=== PATIENT | female | born 1985 | race Caucasian/White ===

== ENCOUNTER 2016-11-25 12:18 | Emergency (ER) | payer SELFPAY ==
[2016-11-25] MEDS ORDERED: SODIUM CHLORIDE 0.9% 500 ML IV STA (12:47)
--- NOTE | 2016-11-25 12:51 | ED ---
General Adult HPI - General Chief complaint: Chest Pain Stated complaint: Chest Pain Time Seen by Provider: 11/25/16 12:25 Source: patient, RN notes reviewed Mode of arrival: wheelchair Limitations: no limitations - History of Present Illness Initial comments: This is a 31-year-old female presents emergency Department complaining of her heart fluttering over the last 3 days. Patient states it lasts for about 10 seconds and goes away. Patient states today she continued to have episodes of fluttering but she also has chest tightness. Patient states she does have a history of anxiety but with the fluttering she didn't think it was her anxiety. Patient denies any difficulty breathing first breath per patient denies any fluttering currently. Patient denies any recent fever chills or cough. Patient denies any chest pain. Patient denies any abdominal pain patient denies nausea vomiting diarrhea. Patient denies any lightheadedness dizziness or near syncopal episode. - Related Data Home Medications Medication Instructions Recorded Confirmed No Known Home Medications [No 11/25/16 11/25/16 Known Home Medications] Allergies Allergy/AdvReac Type Severity Reaction Status Date / Time No Known Allergies Allergy Verified 11/25/16 12:31 Review of Systems ROS Statement: Those systems with pertinent positive or pertinent negative responses have been documented in the HPI. ROS Other: All systems not noted in ROS Statement are negative. Past Medical History Past Medical History: No Reported History History of Any Multi-Drug Resistant Organisms: None Reported Past Surgical History: No Surgical Hx Reported Past Psychological History: Anxiety Smoking Status: Current every day smoker Past Alcohol Use History: Occasional Past Drug Use History: None Reported General Exam - General Exam Comments Initial Comments: GENERAL: Patient is well-developed and well-nourished. Patient is nontoxic and well- hydrated and is in no acute distress. ENT: Neck is soft and supple. No significant lymphadenopathy is noted. Oropharynx is clear. Moist mucous membranes. Neck has full range of motion without eliciting any pain. EYES: The sclera were anicteric and conjunctiva were pink and moist. Extraocular movements were intact and pupils were equal round and reactive to light. Eyelids were unremarkable. PULMONARY: Unlabored respirations. Good breath sounds bilaterally. No audible rales rhonchi or wheezing was noted. CARDIOVASCULAR: There is a regular rate and rhythm without any murmurs gallops or rubs. ABDOMEN: Soft and nontender with normal bowel sounds. No palpable organomegaly was noted. There is no palpable pulsatile mass. SKIN: Skin is clear with no lesions or rashes and otherwise unremarkable. NEUROLOGIC: Patient is alert and oriented x3. Cranial nerves II through XII are grossly intact. Motor and sensory are also intact. Normal speech, volume and content. Symmetrical smile. MUSCULOSKELETAL: Normal extremities with adequate strength and full range of motion. No lower extremity swelling or edema. No calf tenderness. LYMPHATICS: No significant lymphadenopathy is noted PSYCHIATRIC: Normal psychiatric evaluation. Normal interpersonal interactions appears functionally intact in deals appropriately with others. No signs of depression. Patient is mildly anxious Limitations: no limitations Course Vital Signs 11/25/16 11/25/16 11/25/16 12:25 12:42 14:07 Temperature 97.9 F Pulse Rate 109 H 132 H 80 Respiratory 18 20 18 Rate Blood Pressure 126/81 152/76 124/71 O2 Sat by Pulse 100 100 98 Oximetry Medical Decision Making - Medical Decision Making EKG shows sinus tachycardia at 131 bpm OH interval is 136 QRS is 76 QT interval 298 QTC is 440. Patient's EKG shows no ST segment elevation or depression or T wave abnormalities are noted Patient's chest x-ray is normal. I went back into reevaluate the patient she stated she had no more palpitations here. Patient states she thinks she may have had a few palpitations and then got anxious and therefore the chest tightness. Patient states she feels much better now. Patient will follow-up with her primary medical care doctor to get a heart monitor. - Lab Data Result diagrams: 11/25/16 12:39 11/25/16 12:39 Lab Results 11/25/16 11/25/16 11/25/16 Range/Units 12:39 12:39 12:39 WBC 10.4 (3.8-10.6) k/uL RBC 4.89 (3.80-5.40) m/uL Hgb 15.5 (11.4-16.0) gm/dL Hct 46.6 H (34.0-46.0) % MCV 95.4 (80.0-100.0) fL MCH 31.7 (25.0-35.0) pg MCHC 33.2 (31.0-37.0) g/dL RDW 12.7 (11.5-15.5) % Plt Count 226 (150-450) k/uL Neutrophils % 65 % Lymphocytes % 27 % Monocytes % 4 % Eosinophils % 1 % Basophils % 1 % Neutrophils # 6.7 (1.3-7.7) k/uL Lymphocytes # 2.8 (1.0-4.8) k/uL Monocytes # 0.4 (0-1.0) k/uL Eosinophils # 0.1 (0-0.7) k/uL Basophils # 0.1 (0-0.2) k/uL PT (9.0-12.0) sec INR (<1.1) APTT (22.0-30.0) sec Sodium 142 (137-145) mmol/L Potassium 4.0 (3.5-5.1) mmol/L Chloride 105 (98-107) mmol/L Carbon Dioxide 22 (22-30) mmol/L Anion Gap 15 mmol/L BUN 11 (7-17) mg/dL Creatinine 0.66 (0.52-1.04) mg/dL Est GFR (MDRD) Af Amer >60 (>60 ml/min/1.73 sqM) Est GFR (MDRD) Non-Af >60 (>60 ml/min/1.73 sqM) Glucose 120 H (74-99) mg/dL Calcium 9.6 (8.4-10.2) mg/dL Magnesium 1.8 (1.6-2.3) mg/dL Total Bilirubin 0.7 (0.2-1.3) mg/dL AST 19 (14-36) U/L ALT 22 (9-52) U/L Alkaline Phosphatase 64 (38-126) U/L Total Creatine Kinase 295 H (30-135) U/L CK-MB (CK-2) <0.2 (0.0-2.4) ng/mL CK-MB (CK-2) Rel Index Troponin I <0.012 (0.000-0.034) ng/mL Total Protein 7.8 (6.3-8.2) g/dL Albumin 4.8 (3.5-5.0) g/dL TSH 1.890 (0.465-4.680) mIU/L Free T4 0.73 L (0.78-2.19) ng/dL 11/25/16 Range/Units 12:39 WBC (3.8-10.6) k/uL RBC (3.80-5.40) m/uL Hgb (11.4-16.0) gm/dL Hct (34.0-46.0) % MCV (80.0-100.0) fL MCH (25.0-35.0) pg MCHC (31.0-37.0) g/dL RDW (11.5-15.5) % Plt Count (150-450) k/uL Neutrophils % % Lymphocytes % % Monocytes % % Eosinophils % % Basophils % % Neutrophils # (1.3-7.7) k/uL Lymphocytes # (1.0-4.8) k/uL Monocytes # (0-1.0) k/uL Eosinophils # (0-0.7) k/uL Basophils # (0-0.2) k/uL PT 11.1 (9.0-12.0) sec INR 1.1 (<1.1) APTT 25.3 (22.0-30.0) sec Sodium (137-145) mmol/L Potassium (3.5-5.1) mmol/L Chloride (98-107) mmol/L Carbon Dioxide (22-30) mmol/L Anion Gap mmol/L BUN (7-17) mg/dL Creatinine (0.52-1.04) mg/dL Est GFR (MDRD) Af Amer (>60 ml/min/1.73 sqM) Est GFR (MDRD) Non-Af (>60 ml/min/1.73 sqM) Glucose (74-99) mg/dL Calcium (8.4-10.2) mg/dL Magnesium (1.6-2.3) mg/dL Total Bilirubin (0.2-1.3) mg/dL AST (14-36) U/L ALT (9-52) U/L Alkaline Phosphatase (38-126) U/L Total Creatine Kinase (30-135) U/L CK-MB (CK-2) (0.0-2.4) ng/mL CK-MB (CK-2) Rel Index Troponin I (0.000-0.034) ng/mL Total Protein (6.3-8.2) g/dL Albumin (3.5-5.0) g/dL TSH (0.465-4.680) mIU/L Free T4 (0.78-2.19) ng/dL Disposition Clinical Impression: Palpitations Disposition: HOME SELF-CARE Condition: Good Instructions: Palpitations (ED) Referrals: Presley Eduardo DO [Primary Care Provider] - 1-2 days Time of Disposition: 14:21
[2016-11-25 13:11] LABS: Basophils # (A) 0.1 k/uL (0-0.2); Basophils % (A) 1 %; CHCM 33.7; Eosinophils # (A) 0.1 k/uL (0-0.7); Eosinophils % (A) 1 %; HCT 46.6 % (34.0-46.0); HDW 2.14; HGB 15.5 gm/dL (11.4-16.0); Luc # (Auto) 0.19; Luc % (Auto) 2; Lymphocytes # (A) 2.8 k/uL (1.0-4.8); Lymphocytes % (A) 27 %; MCH 31.7 pg (25.0-35.0); MCHC 33.2 g/dL (31.0-37.0); MCV 95.4 fL (80.0-100.0); Mean Platelet Volume 6.6; Monocytes # (A) 0.4 k/uL (0-1.0); Monocytes % (A) 4 %; Neutrophils # (A) 6.7 k/uL (1.3-7.7); Neutrophils % (A) 65 %; RBC 4.89 m/uL (3.80-5.40); RDW 12.7 % (11.5-15.5); WBC 10.4 k/uL (3.8-10.6); WBC (Perox) 9.78
--- NOTE | 2016-11-25 13:12 | XR ---
EXAMINATION TYPE: XR chest 2V DATE OF EXAM: 11/25/2016 COMPARISON: NONE HISTORY: Chest pain and dysrhythmia. TECHNIQUE: Frontal and lateral views of the chest are obtained. FINDINGS: There is no focal air space opacity, pleural effusion, or pneumothorax seen. The cardiac silhouette size is within normal limits. The osseous structures are intact. IMPRESSION: No acute cardiopulmonary process.
[2016-11-25 13:19] LABS: INR 1.1 (<1.1); Partial Thromboplastin Time 25.3 sec (22.0-30.0); Prothrombin Time 11.1 sec (9.0-12.0)
[2016-11-25 13:20] LABS: ALT 22 U/L (9-52); AST 19 U/L (14-36); Alkaline Phosphatase 64 U/L (38-126); Anion Gap 15 mmol/L; Blood Urea Nitrogen 11 mg/dL (7-17); Calcium 9.6 mg/dL (8.4-10.2); Carbon Dioxide 22 mmol/L (22-30); Chloride 105 mmol/L (98-107); Glucose 120 mg/dL (74-99); Magnesium 1.8 mg/dL (1.6-2.3); Non-African American GFR(MDRD) >60 (>60 ml/min/1.73 sqM); Sodium 142 mmol/L (137-145); Total Bilirubin 0.7 mg/dL (0.2-1.3); Total Protein 7.8 g/dL (6.3-8.2)
[2016-11-25 13:36] LABS: Creatine Kinase 295 U/L (30-135)
[2016-11-25 13:48] LABS: Creatine Kinase MB <0.2 ng/mL (0.0-2.4); Troponin I <0.012 ng/mL (0.000-0.034)
[2016-11-25 14:36] VITALS: BP 107/65; PULSE 81; RESP 16; TEMP 98.9
== END 2016-11-25 14:33 | disposition home or self-care (01) ==
LOC: EC 12:18
DX: R00.2 Palpitations (principal); R07.9 Chest pain, unspecified; F17.200 Nicotine dependence, unspecified, uncomplicated
CPT/HCPCS: 36415; 71020; 80053; 82550; 82553; 83735; 84439; 84443; 84484; 85025; 85610; 85730; 93005; 99285

== ENCOUNTER → 2017-03-25 | Outpatient (CLI) | payer OTHER ==
[2017-03-25 19:26] LABS: Basophils # (A) 0.1 k/uL (0-0.2); Basophils % (A) 1 %; CH 31.8; Eosinophils # (A) 0.1 k/uL (0-0.7); Eosinophils % (A) 1 %; HCT 44.4 % (34.0-46.0); HGB 14.4 gm/dL (11.4-16.0); Luc % (Auto) 2; Lymphocytes % (A) 25 %; MCH 31.5 pg (25.0-35.0); MCHC 32.5 g/dL (31.0-37.0); Monocytes # (A) 0.6 k/uL (0-1.0); Monocytes % (A) 5 %; Neutrophils # (A) 8.1 k/uL (1.3-7.7); Neutrophils % (A) 67 %; RBC 4.57 m/uL (3.80-5.40); RDW 13.4 % (11.5-15.5); WBC (Perox) 11.24
[2017-03-25 19:42] LABS: ALT 31 U/L (9-52); AST 21 U/L (14-36); Alkaline Phosphatase 76 U/L (38-126); Anion Gap 13 mmol/L; Blood Urea Nitrogen 18 mg/dL (7-17); Calcium 9.7 mg/dL (8.4-10.2); Carbon Dioxide 21 mmol/L (22-30); Chloride 107 mmol/L (98-107); Creatine Kinase 75 U/L (30-135); Glucose 94 mg/dL (74-99); Non-African American GFR(MDRD) >60 (>60 ml/min/1.73 sqM); Potassium 4.1 mmol/L (3.5-5.1); Sodium 141 mmol/L (137-145); Total Bilirubin 0.3 mg/dL (0.2-1.3); Total Protein 7.6 g/dL (6.3-8.2)
[2017-03-25 19:58] LABS: Creatine Kinase MB <0.2 ng/mL (0.0-2.4); Troponin I <0.012 ng/mL (0.000-0.034)
== END | disposition home or self-care (01) ==
LOC: LABMAIN 18:43
PROVIDERS: ATTEND Family Medicine
DX: R07.9 Chest pain, unspecified (principal)
CPT/HCPCS: 36415; 80053; 82550; 82553; 84484; 85025

== ENCOUNTER → 2021-09-16 | Outpatient (CLI) | payer OTHER ==
--- NOTE | 2021-09-17 14:59 | MM ---
Reason for exam: screening (asymptomatic). Baseline mammogram. History: Patient is nulliparous. Family history of breast cancer in maternal grandmother. Taking hormonal contraceptives for 7 years beginning at age 29. Physical Findings: A clinical breast exam by your physician is recommended on an annual basis and results should be correlated with mammographic findings. MG Screening Mammo w CAD Bilateral CC and MLO view(s) were taken. The breast tissue is heterogeneously dense. This may lower the sensitivity of mammography. There is no discrete abnormality. No significant changes when compared with prior studies. ASSESSMENT: Negative, BI-RAD 1 RECOMMENDATION: Routine screening mammogram of both breasts in 1 year.
== END | disposition home or self-care (01) ==
LOC: MERGE 08:00 → RADMAMWWP 08:05
PROVIDERS: ATTEND Obstetrics & Gynecology
DX: Z12.31 Encounter for screening mammogram for malignant neoplasm of breast (principal)
CPT/HCPCS: 77067

== ENCOUNTER → 2021-10-13 | Outpatient (CLI) | payer OTHER ==
[2021-10-13 22:34] LABS: Basophils # (A) 0.07 X 10*3/uL (0.00-0.10); Basophils % (A) 0.6 %; Eosinophils # (A) 0.22 X 10*3/uL (0.04-0.35); HCT 42.3 % (37.2-46.3); HGB 13.7 g/dL (12.0-15.0); Immature Grans, Automated 0.5 %; Lymphocytes # (A) 3.51 X 10*3/uL (0.90-5.00); Lymphocytes % (A) 32.4 %; MCH 30.6 pg (27.0-32.0); MCHC 32.4 g/dL (32.0-37.0); MCV 94.6 fL (80.0-97.0); Mean Platelet Volume 9.8 fL (9.5-12.2); Monocytes # (A) 0.74 X 10*3/uL (0.20-1.00); Monocytes % (A) 6.8 %; NRBC Per 100 WBC 0 /100 WBCS (0.0-0.0); Neutrophils # (A) 6.25 X 10*3/uL (1.80-7.70); Neutrophils % (A) 57.7 %; Platelet Count 311 X 10*3/uL (140-440); RBC 4.47 X 10*6/uL (4.10-5.20); RDW 13.2 % (11.5-14.5); WBC 10.84 X 10*3/uL (4.50-10.00)
== END | disposition home or self-care (01) ==
LOC: LABPAT 16:08
PROVIDERS: ATTEND Obstetrics & Gynecology
DX: Z01.812 Encounter for preprocedural laboratory examination (principal); N87.1 Moderate cervical dysplasia
CPT/HCPCS: 36415; 85025

== ENCOUNTER → 2021-10-27 | Day surgery (SDC) | payer OTHER ==
[~2021-10-27] MED LIST: Acetaminophen-Codeine 300-30mg TAB PO PRN; DEXAMETHASONE SOD PHOSPHATE 4 MG/ML 1 ML VIAL IV ONE; FERRIC SUBSULFATE (MONSELS) JAR TOPICAL ONE; HYDROmorphone (PF) 1 MG/ML ONE; HYDROmorphone 0.5 MG/0.5 ML SYRINGE IVP PRN; IBUPROFEN 600 MG TAB PO PRN; IODINE/POTASS IOD (LUGOLS) BOTTLE TOPICAL ONE; KETOROLAC 15 MG/ML 1 ML VIAL IVP PRN; KETOROLAC 15 MG/ML 1 ML VIAL ONE; LACTATED RINGERS 1,000 ML IV SCH; LIDOCAINE 1% (10MG/ML) FOR IV START INTRADERMA PRN; LIDOCAINE 2% INJ 20 MG/ML (2 ML VIAL) ONE; METOCLOPRAMIDE 5 MG/ML 2 ML VIAL IVP PRN; MIDAZOLAM 2 MG/2 ML VIAL ONE; ONDANSETRON 4 MG/2 ML VIAL IVP ONE; ONDANSETRON 4 MG/2 ML VIAL IVP PRN; PROPOFOL 10 MG/ML 20 ML VIAL IV ONE; Pre Op ABX Message 1 EACH MISC MISCELLANE ONE; SCOPOLAMINE 1 MG/72 HR PATCH TRANSDERM ONE; SIMETHICONE 80 MG CHEWABLE PO PRN; diphenhydrAMINE 50 MG/ML 1 ML VIAL IVP PRN; fentaNYL (PF) 50 MCG/ML 2 ML AMP ONE
[2021-10-27 11:54] VITALS: RESP 16; TEMP 96.9
--- NOTE | 2021-10-27 13:34 | P.OP ---
Date of Procedure: 10/27/21 Preoperative Diagnosis: #1. Endocervical ALE-3/severe dysplasia Postoperative Diagnosis: Same Procedure(s) Performed: #1. Cold knife cervical cone Anesthesia: other (Gen. by LMA) Surgeon: Raj Meza Estimated Blood Loss (ml): 30 IV fluids (ml): 200 Urine output (ml): 10 Pathology: other (Cervical cone) Condition: stable Disposition: PACU Operative Findings: Intraoperatively, the cervix was stained with Lugol strong iodine which demonstrated an area from approximately 6 to 7:30 at the endocervical transformation zone which did not take up stain. There was an IUD in place. A cone was taken to a depth of approximately 2 cm circumferentially to include all the nonstaining area and was ultimately removed and the IUD strings left intact. Post-procedurally, there was minimal ongoing bleeding. The size of the cone was perhaps 1.5 cm x 1.5 cm x 2 cm in depth though it did appear to have been opened during removal incidentally. Description of Procedure: The patient was prepped and draped in usual fashion after general anesthesia was administered by the anesthesiologist. A weighted speculum was placed and the bladder drained of approximately 10 mL of clear jennie urine. The anterior lip of the cervix was grasped with a single-tooth tenaculum allowing placement of a cervical stay suture from 10:00 to 8:00 into the body of the cervix at the cervicovaginal junction using 0 Vicryl where was firmly tied down. A similar stitch was placed at the cervicovaginal junction into the body of the cervix from 2 to 4:00 and firmly tied down. The tenaculum was then removed and the cervix painted with Lugol strong iodine. The findings are as noted above. IUD strings were clearly seen within the cervical os and were moved out of the way as a circumferential incision with an 11 blade scalpel was made to approximate 2 cm of depth around a uterine sound placed through the canal and into the uterine cavity. Once the depth of the cone had been attained, the sound was removed and the cone grasped anterior posteriorly with an Allis clamp and it was carefully excised at its deepest point. Fortunately, the cone was removed and the IUD strings remain intact within the cervical os. The cone bed was then cauterized from the base using ball cautery to the ectocervical component where the margin of the ectocervix was thoroughly cauterized as well. There was a small amount of bleeding still ongoing and Monsel solution was utilized with a large swab to be placed into the bed of the cone was left in place for 30-45 seconds. After removal, there was minimal ongoing bleeding. Cautery was carried out at one small site that was seen to be bleeding. A second swab of Monsel solution was used. After removal of the swab bleeding was significantly less than a normal period. The stay sutures were left in place but trimmed short and all instrumentation was removed. Estimated blood loss for the case was approximately 30 mL. There were no complications. All sponge, instrument, and needle counts were correct. The patient tolerated the procedure well and proceeded to the recovery room in stable condition.
[2021-10-27 14:43] VITALS: BP 117/79; PULSE 77
== END | disposition home or self-care (01) ==
LOC: OR 10:27
PROVIDERS: ATTEND Obstetrics & Gynecology
DX: D06.9 Carcinoma in situ of cervix, unspecified (principal); F17.210 Nicotine dependence, cigarettes, uncomplicated; Z97.5 Presence of (intrauterine) contraceptive device; Z87.19 Personal history of other diseases of the digestive system; Z82.49 Family history of ischemic heart disease and other diseases of the circulatory system
CPT/HCPCS: 81025; 88307; 57520; J2250; J1100; J2405; J3010; J1170; J1885; J2704; J2001

== ENCOUNTER 2021-12-05 13:16 | Emergency (ER) | payer OTHER ==
[2021-12-05 14:22] VITALS: TEMP 98.6
[2021-12-05] MEDS ORDERED: NITROGLYCERIN OINT 1 INCH/GM PACKET TOPICAL STA (18:14)
[2021-12-05] MEDS ORDERED: ASPIRIN 81 MG PO STA (18:14)
--- NOTE | 2021-12-05 18:16 | ED ---
General Adult HPI - General Chief complaint: Chest Pain Stated complaint: chest pain x 1wk Time Seen by Provider: 12/05/21 17:54 Source: patient, RN notes reviewed Mode of arrival: ambulatory Limitations: no limitations - History of Present Illness Initial comments: Patient is a pleasant 36-year-old female presenting to the emergency Department with chest discomfort. Onset of symptoms was close to week ago. Discomfort has been more prevalent today. Discomfort feels like sharp in her chest. No associated dyspnea, nausea, or diaphoresis. Patient has not noticed worsening symptoms with exertion. No history of similar symptoms previously. - Related Data Home Medications Medication Instructions Recorded Confirmed No Known Home Medications 11/25/16 10/27/21 Allergies Allergy/AdvReac Type Severity Reaction Status Date / Time No Known Allergies Allergy Verified 12/05/21 14:22 Review of Systems ROS Statement: Those systems with pertinent positive or pertinent negative responses have been documented in the HPI. ROS Other: All systems not noted in ROS Statement are negative. Constitutional: Denies: fever Eyes: Denies: eye pain ENT: Denies: ear pain Respiratory: Denies: cough Cardiovascular: Reports: chest pain Endocrine: Denies: fatigue Gastrointestinal: Denies: abdominal pain Genitourinary: Denies: dysuria Musculoskeletal: Denies: back pain Skin: Denies: rash Neurological: Denies: weakness Past Medical History Past Medical History: No Reported History History of Any Multi-Drug Resistant Organisms: None Reported Past Surgical History: No Surgical Hx Reported Additional Past Surgical History / Comment(s): "cold knife cone" Past Psychological History: Anxiety Smoking Status: Current every day smoker Past Alcohol Use History: Occasional Past Drug Use History: None Reported General Exam Limitations: no limitations General appearance: alert, in no apparent distress Head exam: Present: normocephalic Eye exam: Present: normal appearance Neck exam: Present: normal inspection Respiratory exam: Present: normal lung sounds bilaterally. Absent: chest wall tenderness Cardiovascular Exam: Present: regular rate, normal rhythm Expanded Peripheral pulses: 2+: Radial (R), Radial (L), Posterior Tibialis (R), Posterior Tibialis (L) GI/Abdominal exam: Present: soft. Absent: tenderness Extremities exam: Present: normal inspection. Absent: pedal edema, calf tenderness Back exam: Present: normal inspection Neurological exam: Present: alert Psychiatric exam: Present: normal affect, normal mood Skin exam: Present: normal color Course Vital Signs 12/05/21 14:19 Temperature 98.6 F Pulse Rate 103 H Respiratory 20 Rate Blood Pressure 115/76 O2 Sat by Pulse 97 Oximetry EKG Findings - EKG Comments: EKG Findings:: Sinus rhythm with rate of 82. NH 145. QRS 82. QT 356. QTc 394. Normal axis. Normal QRS. No acute ST change. Medical Decision Making - Medical Decision Making Patient reevaluated and resting comfortably in bed. Patient updated on results. Patient made aware of limitations of tests in the emergency department as well as delay and changes with troponin. Patient does not feel she needs to be admitted and would like to be discharged. Patient was offered admission. Patient was also offered repeat troponin. Patient does demonstrate medical decision making. Patient felt be low risk. Heart score 1. Patient is agreeable to close follow-up with primary care physician Wednesday secondary to holiday. - Lab Data Result diagrams: 12/05/21 18:22 12/05/21 18: Lab Results 12/05/21 12/05/21 12/05/21 Range/Units 18:22 18: 18: WBC 12.6 H (3.8-10.6) k/uL RBC 4.44 (3.80-5.40) m/uL Hgb 13.7 (11.4-16.0) gm/dL Hct 41.5 (34.0-46.0) % MCV 93.5 (80.0-100.0) fL MCH 30.9 (25.0-35.0) pg MCHC 33.0 (31.0-37.0) g/dL RDW 12.4 (11.5-15.5) % Plt Count 287 (150-450) k/uL MPV 7.4 Neutrophils % 64 % Lymphocytes % 27 % Monocytes % 4 % Eosinophils % 2 % Basophils % 2 % Neutrophils # 8.1 H (1.3-7.7) k/uL Lymphocytes # 3.4 (1.0-4.8) k/uL Monocytes # 0.5 (0-1.0) k/uL Eosinophils # 0.2 (0-0.7) k/uL Basophils # 0.2 (0-0.2) k/uL PT 11.0 (9.0-12.0) sec INR 1.0 (<1.2) APTT 25.7 (22.0-30.0) sec D-Dimer 0.31 (<0.60) mg/L FEU Sodium 136 L (137-145) mmol/L Potassium 4.5 (3.5-5.1) mmol/L Chloride 107 (98-107) mmol/L Carbon Dioxide 20 L (22-30) mmol/L Anion Gap 9 mmol/L BUN 14 (7-17) mg/dL Creatinine 0.68 (0.52-1.04) mg/dL Est GFR (CKD-EPI)AfAm >90 (>60 ml/min/1.73 sqM) Est GFR (CKD-EPI)NonAf >90 (>60 ml/min/1.73 sqM) Glucose 96 (74-99) mg/dL Calcium 9.4 (8.4-10.2) mg/dL Magnesium 1.9 (1.6-2.3) mg/dL Total Bilirubin 0.5 (0.2-1.3) mg/dL AST 23 (14-36) U/L ALT 12 (4-34) U/L Alkaline Phosphatase 75 (38-126) U/L Troponin I (0.000-0.034) ng/mL Total Protein 7.4 (6.3-8.2) g/dL Albumin 4.6 (3.5-5.0) g/dL Amylase 55 (30-110) U/L Lipase 90 (23-300) U/L 12/05/21 Range/Units 18:22 WBC (3.8-10.6) k/uL RBC (3.80-5.40) m/uL Hgb (11.4-16.0) gm/dL Hct (34.0-46.0) % MCV (80.0-100.0) fL MCH (25.0-35.0) pg MCHC (31.0-37.0) g/dL RDW (11.5-15.5) % Plt Count (150-450) k/uL MPV Neutrophils % % Lymphocytes % % Monocytes % % Eosinophils % % Basophils % % Neutrophils # (1.3-7.7) k/uL Lymphocytes # (1.0-4.8) k/uL Monocytes # (0-1.0) k/uL Eosinophils # (0-0.7) k/uL Basophils # (0-0.2) k/uL PT (9.0-12.0) sec INR (<1.2) APTT (22.0-30.0) sec D-Dimer (<0.60) mg/L FEU Sodium (137-145) mmol/L Potassium (3.5-5.1) mmol/L Chloride (98-107) mmol/L Carbon Dioxide (22-30) mmol/L Anion Gap mmol/L BUN (7-17) mg/dL Creatinine (0.52-1.04) mg/dL Est GFR (CKD-EPI)AfAm (>60 ml/min/1.73 sqM) Est GFR (CKD-EPI)NonAf (>60 ml/min/1.73 sqM) Glucose (74-99) mg/dL Calcium (8.4-10.2) mg/dL Magnesium (1.6-2.3) mg/dL Total Bilirubin (0.2-1.3) mg/dL AST (14-36) U/L ALT (4-34) U/L Alkaline Phosphatase (38-126) U/L Troponin I <0.012 (0.000-0.034) ng/mL Total Protein (6.3-8.2) g/dL Albumin (3.5-5.0) g/dL Amylase (30-110) U/L Lipase (23-300) U/L - Radiology Data Radiology results: image reviewed (Chest x-ray shows no acute process) Disposition Clinical Impression: Chest pain Disposition: HOME SELF-CARE Condition: Stable Instructions (If sedation given, give patient instructions): Chest Pain (ED) Additional Instructions: Please do follow-up to primary care physician in the next day or 2 for recheck. You will need further evaluation. Return for increased pain, difficulty breathing, worsening or changing symptoms or any other concerns. Is patient prescribed a controlled substance at d/c from ED?: No Referrals: Henry Rose MD [Primary Care Provider] - 1-2 days Time of Disposition: 19:54
[2021-12-05 18:43] LABS: Basophils # (A) 0.2 k/uL (0-0.2); Basophils % (A) 2 %; Eosinophils # (A) 0.2 k/uL (0-0.7); Eosinophils % (A) 2 %; HCT 41.5 % (34.0-46.0); HGB 13.7 gm/dL (11.4-16.0); Lymphocytes # (A) 3.4 k/uL (1.0-4.8); Lymphocytes % (A) 27 %; MCH 30.9 pg (25.0-35.0); MCV 93.5 fL (80.0-100.0); Mean Platelet Volume 7.4; Monocytes # (A) 0.5 k/uL (0-1.0); Monocytes % (A) 4 %; Neutrophils # (A) 8.1 k/uL (1.3-7.7); Neutrophils % (A) 64 %; Platelet Count 287 k/uL (150-450); RBC 4.44 m/uL (3.80-5.40); RDW 12.4 % (11.5-15.5); WBC 12.6 k/uL (3.8-10.6)
--- NOTE | 2021-12-05 18:46 | XR ---
EXAMINATION TYPE: XR chest 2V DATE OF EXAM: 12/05/2021 6:40 PM COMPARISON: Chest radiographs from 11/25/2016 TECHNIQUE: XR chest 2V Frontal and lateral views of the chest. CLINICAL INDICATION:Female, 36 years old with history of Chest Pain; FINDINGS: Lungs/Pleura: There is no evidence of pleural effusion, focal consolidation, or pneumothorax. Pulmonary vascularity: Unremarkable. Heart/mediastinum: Cardiomediastinal silhouette is unremarkable. Musculoskeletal: No acute osseous pathology. IMPRESSION: No acute cardiopulmonary disease/process.
[2021-12-05 18:53] LABS: ALT 12 U/L (4-34); African American GFR (CKD) >90 (>60 ml/min/1.73 sqM); Albumin 4.6 g/dL (3.5-5.0); Amylase 55 U/L (30-110); Anion Gap 9 mmol/L; Blood Urea Nitrogen 14 mg/dL (7-17); Calcium 9.4 mg/dL (8.4-10.2); Carbon Dioxide 20 mmol/L (22-30); Chloride 107 mmol/L (98-107); Glucose 96 mg/dL (74-99); Lipase 90 U/L (23-300); Non-African American GFR(CKD) >90 (>60 ml/min/1.73 sqM); Sodium 136 mmol/L (137-145); Total Bilirubin 0.5 mg/dL (0.2-1.3); Total Protein 7.4 g/dL (6.3-8.2)
[2021-12-05 18:57] LABS: AST 23 U/L (14-36); Alkaline Phosphatase 75 U/L (38-126); Magnesium 1.9 mg/dL (1.6-2.3); Potassium 4.5 mmol/L (3.5-5.1)
[2021-12-05 19:17] LABS: Partial Thromboplastin Time 25.7 sec (22.0-30.0)
[2021-12-05 20:37] VITALS: BP 125/70; PULSE 72; RESP 16
== END 2021-12-05 20:41 | disposition home or self-care (01) ==
LOC: EC 13:16
DX: R07.89 Other chest pain (principal); F17.200 Nicotine dependence, unspecified, uncomplicated
CPT/HCPCS: 36415; 71046; 80053; 82150; 83690; 83735; 84484; 85025; 85379; 85610; 85730; 93005; 99285